=== PATIENT | male | born 1940 | race Caucasian/White ===

== ENCOUNTER → 2016-02-14 | Outpatient (CLI) | payer MEDICARE, OTHER ==
[~2016-02-14] MED LIST: ATOR40TA59 PO; BENZ-13 PO; CALC-694 PO; CALC0.253 PO; CEFD300C PO; CETI-262 PO; CLCX100C PO; FURO40TA4 PO; INSA10V SC; INSU100V32 SC; ND-PRIM50T PO; PROP120C3 PO; SERT100T8 PO; SILD100T PO; WRF2T PO; WRF5T PO; [UNRECOGNIZED DRUG - CODE] IC; [UNRECOGNIZED DRUG - CODE] SC; [UNRECOGNIZED DRUG - CODE] SQ
--- NOTE | 2016-02-14 18:31 | Diagnostic Imaging Report ---
INDICATION: Cough, dyspnea. DISCUSSION: Two views of the chest were obtained, no comparison. The heart and lungs are normal. Mild pulmonary hyperinflation. No acute osseous abnormality. No focal consolidation. IMPRESSION: 1. Mild pulmonary hyperinflation. Dictated by: Dictated on workstation # [id number]
== END ==
LOC: RAD 16:54
PROVIDERS: ATTEND Family Medicine
DX: R05 Cough (principal); R06.02 Shortness of breath
CPT/HCPCS: 71020

== ENCOUNTER → 2016-02-14 | Outpatient (REF) | payer MEDICARE, OTHER ==
[2016-02-14 18:10] LABS: BASOPHILS % (AUTO) 1 % (0-2); EOSINOPHILS # (AUTO) 0.1 10^3uL; EOSINOPHILS % (AUTO) 1 % (0-4); LYMPHOCYTES # (AUTO) 2.2 X10^3; MEAN CORPUSCULAR HEMOGLOBIN 30.2 PG (26.0-34.0); MEAN CORPUSCULAR HGB CONC 32.8 g/dL (31.0-37.0); MEAN CORPUSCULAR VOLUME 92 FL (80-100); MEAN PLATELET VOLUME 11.7 FL (6.0-9.5); MONOCYTES % (AUTO) 8 % (3-11); NEUTROPHILS # (AUTO) 9.1 X10^3; NEUTROPHILS % (AUTO) 72 % (51-67); PLATELET COUNT 247 10^3uL (150-450); WHITE BLOOD COUNT 12.59 10^3uL (4.0-11.0)
[2016-02-14 18:38] LABS: ANION GAP 17.2 MEQ/L (3-15); CALCULATED IONIZED CALCIUM 3.7 mg/dL (3.8-4.6); TOTAL PROTEIN 7.4 g/dL (6.4-8.5)
== END ==
LOC: LAB 16:49
PROVIDERS: ATTEND Family Medicine
DX: R05 Cough (principal); R06.02 Shortness of breath
CPT/HCPCS: 80053; 85025; 86140

== ENCOUNTER 2016-02-15 09:25 | Inpatient (IN) | payer MEDICARE, OTHER ==
[~2016-02-15] VITALS: Ht 177.8 cm; Wt 143.7 kg
[2016-02-15 10:21] VITALS: BP 139/92
[2016-02-15] MEDS ORDERED: CALC0.253 PO (10:31)
[2016-02-15] MEDS ORDERED: ND-PRIM50T PO (10:31)
[2016-02-15] MEDS ORDERED: FURO40TA4 PO (10:31)
[2016-02-15] MEDS ORDERED: INSU100V32 SC (10:31)
[2016-02-15] MEDS ORDERED: CETI-262 PO (10:31)
[2016-02-15] MEDS ORDERED: SERT100T8 PO (10:31)
[2016-02-15] MEDS ORDERED: ATOR40TA59 PO (10:31)
[2016-02-15] MEDS ORDERED: CLCX100C PO (10:31)
[2016-02-15] MEDS ORDERED: CEFD300C PO (10:31)
[2016-02-15] MEDS ORDERED: CALC-694 PO (10:31)
[2016-02-15] MEDS ORDERED: PROP120C3 PO (10:31)
--- NOTE | 2016-02-15 10:46 | History and Physical (E) ---
History & Physical PCP: Thierry Guerra MD CC: Hyperglcemia, weakness HPI: Mr. Betancourt is a 75 year old male admitted from Dr Guerra's office for hyperglcemia and weakness. His blood sugar was noted to be over 500. He complains of myalgias and weakness for the last 3-4weeks. He admits to losing 30 + pounds in the last 4 months but in a weight loss program with [facility] , although he has reported to nursing staff that he has not been following the diet for a while. He denies abdominal pain and reports his stools have been normal. No headaches. He states he has not felt well for about 1 month. He has recently been treated for bronchitis with Zithromax but has not improved. CXR in PCP's office did not reveal pneumonia. He was started on Omnicef, recently, however despite 2 antibiotics he is not improving. Upon arrival to the floor, he looks dry and dehydrated. Flat affect today. He is not in any distress. Discussed care and plans. Questions answered. PMH: IDDM-Type 2 (Insulin) Atrial Fibrillation (Warfarin) Hyperlipidemia (Atorvastatin) VTE's--DVT left leg and PE (Warfarin) Essential Tremor (Propranolol) Morbid Obesity Erectile dysfunction (Sildenafil) Actinic Keratosis Depression (Sertraline) Pancreatitis due to cholecystitis PSH: Tonsillectomy Variceal Cholecystectomy Colonoscopy- normal per pt ALLERGIES: NONE HOME MEDICATIONS: Alprostadil 20 MCG IC UD Atorvastatin 40 MG PO DAILY Calcitriol 0.25 MCG PO BID Calcium Carbonate/Vitamin D3 1 TAB PO BID Cefdinir 300 MG PO BID Celecoxib 100 MG PO BID Cetirizine 10 MG PO DAILY Furosemide 40 MG PO BID Hum Insulin NPH/Reg Insulin 70/30 Mix 60 UNIT SC WITH BREAKFAST Hum Insulin NPH/Reg Insulin 70/30 Mix 60 UNIT SQ WITH LUNCH Hum Insulin NPH/Reg Insulin 70/30 Mix 30 UNIT SQ WITH DINNER Insulin Glargine 20 UNIT SC HS Primidone 50 MG PO BID Propranolol 120 MG PO DAILY Sertraline 100 MG PO DAILY Sildenafil 100 MG PO UD Warfarin 2mg and 5 mg alternatively PO DAILY@1700 Please see list at end of report. FH: Parents--Mother in a car wreck age 55. Father age 75 kidney, cardiac and lung issues Siblings--Brother had TB x 2 and on oxygen. SH: to second - he has one daughter who lives in [place], and she has 8 kids. He does not smoke or use alcohol, retired from [employer], lives in [place], still drives ROS: CONSTITUTION: Endorses weight loss. No weight gain. Denies fever or chills. HEENT: No change in vision or hearing. No sores in mouth, sore throat. CV: No chest pain, palpitations. PULM: No cough, shortness of breath, difficulty breathing. GI: No upset stomach, nausea, vomiting, constipation, or diarrhea. No blood in stool. : No dysuria. No blood in urine. MS: Endorses achiness all over . NEURO: No numbness or tingling. No weakness. INTEG: No rashes, lesions, or sores. ENDO: No heat or cold intolerance. No polydipsia or polyuria. HEME/LYMPH: No easy bruising or bleeding. No swollen glands. PSYCH: No change in mood or behavior. OBJECTIVE: Vitals: Vital Signs Date Time Temp Pulse Resp B/P Pulse Ox O2 Delivery O2 Flow Rate FiO2 02/15/16 10:21 97.2 108 20 91 Room air GEN: Awake and alert, no distress, speech clear. HEENT: EOMI, PERRL, moist oral mucosa. CV: Irregular rhythm. Regular rate. LUNGS: CTA B. NLR's. ABD: Obese. Normal bowel sounds. S/NTTP/ND. EXTR: No C/C/E. Normal peripheral pulses. Labs: Glucose 505 today CBC BMP Last 24 Hrs 02/15/16 11:05 Laboratory Results Past 24 Hrs 02/15/16 11:05: Alanine Aminotransferase (ALT/SGPT) 76, Albumin 4.3, Albumin/Globulin Ratio 1.162, Alkaline Phosphatase 85, Anion Gap 17.2, Aspartate Amino Transf (AST/SGOT ) 51, BUN/Creatinine Ratio 14, Basophils # (Auto) 0.1, Basophils (%) (Auto) 1, Blood Urea Nitrogen 38, C-Reactive Protein 1.40, Calcium Level 8.9, Calcium/ Ionized Calcium Ratio 3.6, Calculated Osmolality 292, Carbon Dioxide Level 23, Chloride Level 98, Creatine Kinase MB 1.2, Creatinine 2.79, Eosinophils # (Auto ) 0.2, Eosinophils (%) (Auto) 2, Estimat Glomerular Filtration Rate 27.1, Estimated GFR (Non- 22.4, Glucose Level 548, Hematocrit 37.50, Hemoglobin 12.8, Hemoglobin A1c 11.5, Lymphocytes # (Auto) 1.9, Lymphocytes (%) (Auto) 16, Mean Corpuscular Hemoglobin 30.8, Mean Corpuscular Hemoglobin Concent 34.1, Mean Corpuscular Volume 90, Mean Platelet Volume 11.0, Monocytes # (Auto) 1.1, Monocytes (%) (Auto) 9, NE-Bgd-V-Type Natriuretic Peptide 2550, Neutrophils # (Auto) 8.7, Neutrophils (%) (Auto) 72, Platelet Count 237, Potassium Level 4.9, Prothromb Time International Ratio 2.2, Prothrombin Time 24.2, Red Blood Count 4.15, Red Cell Distribution Width 13.2, Sodium Level 133, Thyroid Stimulating Hormone (TSH) 1.69, Total Bilirubin 1.1, Total Protein 8.0, Troponin I < 0.012, White Blood Count 12.13 02/15/16 11:09: Adenovirus (PCR) [Pending], Bordetella parapertussis DNA (PCR) [Pending], Chlamydophila pneumoniae (PCR) [Pending], Coronavirus Type 229E (PCR) [Pending] , Coronavirus Type HKU1 (PCR) [Pending], Coronavirus Type NL63 (PCR) [Pending], Coronavirus Type OC43 (PCR) [Pending], Enterovirus/Rhinovirus (PCR) [Pending], Human Metapneumovirus (PCR) [Pending], Influenza Type A (H1) (PCR) [Pending], Influenza Virus Type B (PCR) [Pending], Mycoplasma pneumoniae (PCR) [Pending], Parainfluenza Type 1 (PCR) [Pending], Parainfluenza Type 2 (PCR) [Pending], Parainfluenza Type 3 (PCR) [Pending], Parainfluenza Type 4 (PCR) [Pending], Respiratory Syncytial Virus (PCR) [Pending] IMAGING: CXR IMPRESSION: 1. Mild pulmonary hyperinflation. ASSESSMENT/PLAN: Hyperglycemia Will treat with insulin here. Patient is on mealtime insulin and hs lantus. Continue accu cheks. Malaise/sore throat Patient testing positive for parainfluenza 3. Treating symptomatically. Atrial Fibrillation Continue home warfarin regimen. INR is currently therapeutic. Hyperlipidemia Continue home atorvastatin. VTE's History of DVT left leg and PE. Continue therapeutic coumadin. Essential Tremor Continue home propranolol. Erectile dysfunction Continuing home sildenafil. Depression Continue home sertraline. FEN NS at 100/hr. Electrolyte--mild hyponatremia. Will monitor. Diabetic diet as tolerated. Code status Full code. DVT proph Therapeutic warfarin. Dispo Inpatient or now. Monitor closely. Allergies/Home Medications Allergies: Coded Allergies: No Known Drug Allergies (Unverified , 04/21/12) Reported Home Medications Scheduled Alprostadil (Caverject) 20 MCG IC UD (Reported) Atorvastatin Calcium (Atorvastatin Calcium) 40 MG PO DAILY (Reported) Calcitriol (Calcitriol) 0.25 MCG PO BID (Reported) Calcium Carbonate/Vitamin D3 (Calcium 600 + Vit D Caplet) 1 TAB PO BID (Reported ) Cefdinir (Cefdinir) 300 MG PO BID (Reported) Celecoxib (Celebrex) 100 MG PO BID (Reported) Cetirizine HCl (Cetirizine HCl) 10 MG PO DAILY (Reported) Furosemide (Furosemide) 40 MG PO BID (Reported) Hum Insulin NPH/Reg Insulin Hm (Novolin 70/30 Mix) 60 UNIT SC WITH BREAKFAST ( Reported) Hum Insulin NPH/Reg Insulin Hm (Novolin 70/30 Mix) 60 UNIT SQ WITH LUNCH ( Reported) Hum Insulin NPH/Reg Insulin Hm (Novolin 70/30 Mix) 30 UNIT SQ WITH DINNER ( Reported) Insulin Glargine,Hum.rec.anlog (Lantus) 20 UNIT SC HS (Reported) Primidone (Mysoline) 50 MG PO BID (Reported) Propranolol HCl (Propranolol HCl) 120 MG PO DAILY (Reported) Sertraline HCl (Sertraline HCl) 100 MG PO DAILY (Reported) Sildenafil Citrate (Viagra) 100 MG PO UD (Reported) Warfarin (Warfarin) 5 MG PO DAILY@1700 (Reported) Warfarin (Warfarin) 2 MG PO DAILY@1700 (Reported) Discontinued Medications Insuln Asp Prt/Insulin Aspart (Novolog 70/30 Mix) 60 UNITS SC WITH LUNCH ( Reported) Discontinued Reason: Entered in error Copies to: End of Report . Azucena Lacey APRN Feb 15, 2016 10:46 HARLEY JUSTICE MD Feb 15, 2016 23:21
[2016-02-15] MEDS ORDERED: ACETAMINOPHEN 325 MG TAB (TYLENOL) PO PRN (10:50)
[2016-02-15] MEDS ORDERED: ONDANSETRON 2 MG/ML (Z0FRAN) 2 ML VIAL IV PRN (10:50)
[2016-02-15] MEDS ORDERED: INSULIN REGULAR 1 UNIT/0.01 ML DOSE IV ONE (10:50)
[2016-02-15] MEDS ORDERED: WRF5T PO (11:00)
[2016-02-15] MEDS ORDERED: NS FLUSH 3 ML PRN IV (11:00)
[2016-02-15] MEDS ORDERED: NS FLUSH 10 ML PRN IV (11:00)
[2016-02-15] MEDS ORDERED: WRF2T PO (11:00)
[2016-02-15 11:22] LABS: BASOPHILS % (AUTO) 1 % (0-2); EOSINOPHILS # (AUTO) 0.2 10^3uL; EOSINOPHILS % (AUTO) 2 % (0-4); LYMPHOCYTES # (AUTO) 1.9 X10^3; MEAN CORPUSCULAR HEMOGLOBIN 30.8 PG (26.0-34.0); MEAN CORPUSCULAR HGB CONC 34.1 g/dL (31.0-37.0); MEAN CORPUSCULAR VOLUME 90 FL (80-100); MONOCYTES # (AUTO) 1.1 X10^3; MONOCYTES % (AUTO) 9 % (3-11); NEUTROPHILS # (AUTO) 8.7 X10^3; NEUTROPHILS % (AUTO) 72 % (51-67); PLATELET COUNT 237 10^3uL (150-450); WHITE BLOOD COUNT 12.13 10^3uL (4.0-11.0)
[2016-02-15] MEDS ORDERED: INSA10V SC (11:33)
[2016-02-15] MEDS ORDERED: [UNRECOGNIZED DRUG - CODE] SC (11:33)
[2016-02-15] MEDS ORDERED: SILD100T PO (11:33)
[2016-02-15] MEDS ORDERED: [UNRECOGNIZED DRUG - CODE] IC (11:33)
[2016-02-15 11:35] LABS: ALBUMIN 4.3 g/dL (3.4-5.0); ALKALINE PHOSPHATASE 85 U/L (38-126); ANION GAP 17.2 MEQ/L (3-15); BUN/CREATININE RATIO 14 (10-20); CALCULATED IONIZED CALCIUM 3.6 mg/dL (3.8-4.6)
[2016-02-15] MEDS ORDERED: [UNRECOGNIZED DRUG - CODE] SQ ×2 (11:36)
[2016-02-15 11:45] VITALS: BP 134/67
[2016-02-15] MEDS ORDERED: INSULIN LISPRO 1 UNIT/0.01 ML (HUMALOG) DOSE SC ONE ×2 (12:20→14:05)
[2016-02-15] MEDS ORDERED: PROMETHAZINE/CODEINE SYRUP 6.25MG-10MG/5ML (PHENERGAN W/COD) UDC PO PRN (13:50)
--- NOTE | 2016-02-15 14:07 | NUR ---
MED REC COMPLETE--current med list obtained from patient report (written list), external med history application, listing from patient's PCP (Dr. Guerra), and retail pharmacy ([facility]).
[2016-02-15] MEDS: BENZONATATE 100 MG (TESSALON) CAPSULE PO PRN ×2 (14:22→20:40)
[2016-02-15 15:50] VITALS: BP 111/79
[2016-02-15 16:03] LABS: BILIRUBIN,URINE Negative (Negative); CLARITY,URINE Clear; COLOR,URINE Yellow; GLUCOSE, URINE (UA) 2+ (Negative); LEUKOCYTE ESTERASE ,URINE Negative (Negative); PH,URINE 5.5 (5.0 - 8.0); UROBILINOGEN,URINE 0.2 mg/dL (0.2-1.0)
[2016-02-15 16:06] LABS: URINE CENTRIFUGED VOLUME 12 mL
[2016-02-15 16:09] LABS: RBC,URINE 0-2 /HPF
[2016-02-15] MEDS ORDERED: DEXTROSE 50% 25 GM/50 ML SYRINGE ONE (17:13)
[2016-02-15] MEDS: DEXTROSE 50% 25 GM/50 ML SYRINGE IV PRN ×2 (17:15→18:19)
[2016-02-15] MEDS ORDERED: DEXTROSE ORAL GEL (GLUTOSE 40%) 15 GM TUBE PO PRN (17:25)
[2016-02-15] MEDS ORDERED: GLUCAGON EMERGENCY 1 MG/KIT IM PRN (17:25)
[2016-02-15] MEDS: INSULIN LISPRO 1 UNIT/0.01 ML (HUMALOG) DOSE SC SCH ×2 (17:30→21:00)
[2016-02-15 19:54] VITALS: BP 110/72
--- NOTE | 2016-02-15 19:56 | NUR ---
Pt reports to floor at 0947 ambulatory from home. Pt saw Dr. uGerra yesterday and was told to come be admitted today. Pt's blood sugar was [address] Guerra's office. Pt's blood sugar at 1015 was 505. 15 units IV Regular insulin given per order. Blood sugar at 1210 was 387. 75 units Humalog SQ given. 1400 blood sugar was 307. 10units Humalog SQ given, Blood sugar at 1500 was 115. Blood sugars to be AC/HS. Blood sugar at 1712 was 37. Pt barely responsive and very diaphoretic. 1/2 amp D50 given per protocol. Blood sugar 5mins later was 126. Blood sugar at 1800 was 53. 1/2 amp D50 given. 5 mins later, blood sugar 123. 1845-blood sugar 99. Pt eating supper tray at this time. IVF infusing without complications. Pt was given Tessalon pearls x1 at 1422 for cough. Tylenol given x1 at noon for generalized pain. Report given to Anastasia Clayton RN at 1845.
--- NOTE | 2016-02-15 20:40 | NUR ---
PRN Tessalon Perles given at this time per pt request. Denies other needs.
[2016-02-15 23:49] VITALS: BP_SYST 151; BP_SYST 152; BP_SYST 153; BP_DIAS 117; BP_DIAS 95
[2016-02-16 04:21] VITALS: BP 123/88
--- NOTE | 2016-02-16 06:19 | NUR ---
Pt rested well this shift. Skin warm, dry, intact. Resprs nonlabored, even on RA. Call light within reach. Pt's HR got up to 130s-140s per secured entrance monitor when pt got up to RR early this morning. Pt denied feelings of heart racing or palpitations. Pleasant and interactive. NS @ 100mL/hr infusing with no difficulty. Denies needs.
[2016-02-16 06:40] LABS: ALBUMIN 3.7 g/dL (3.4-5.0); ANION GAP 16.5 MEQ/L (3-15); MAGNESIUM* 1.9 mg/dL (1.6-2.3); PHOSPHORUS 3.3 mg/dL (2.4-4.9)
[2016-02-16 06:47] LABS: BASOPHILS % (AUTO) 0 % (0-2); EOSINOPHILS # (AUTO) 0.2 10^3uL; EOSINOPHILS % (AUTO) 1 % (0-4); LYMPHOCYTES # (AUTO) 2.2 X10^3; MEAN CORPUSCULAR HEMOGLOBIN 30.5 PG (26.0-34.0); MEAN CORPUSCULAR HGB CONC 33.4 g/dL (31.0-37.0); MEAN CORPUSCULAR VOLUME 91 FL (80-100); MEAN PLATELET VOLUME 11.4 FL (6.0-9.5); MONOCYTES # (AUTO) 1.3 X10^3; MONOCYTES % (AUTO) 10 % (3-11); NEUTROPHILS # (AUTO) 8.7 X10^3; NEUTROPHILS % (AUTO) 70 % (51-67); PLATELET COUNT 214 10^3uL (150-450); WHITE BLOOD COUNT 12.48 10^3uL (4.0-11.0)
[2016-02-16] MEDS: INSULIN LISPRO 1 UNIT/0.01 ML (HUMALOG) DOSE SC SCH ×2 (08:29→12:32)
[2016-02-16] MEDS: BENZONATATE 100 MG (TESSALON) CAPSULE PO PRN ×2 (08:29→12:47)
[2016-02-16 08:37] VITALS: BP 130/74
[2016-02-16] MEDS ORDERED: NS FLUSH 3 ML DAILY IV SCH (09:00)
--- NOTE | 2016-02-16 09:19 | Progress Note-A/P (E) ---
Progress Note Subjective: Patient reports he is feeling better. He would like to go home for better rest. Discussed current care plans and discharge planning with patient and . Objective: Current Medications Acetaminophen 650 mg Q6H PRN PO Ondansetron 4 mg Q6H PRN IV Benzonatate 100 mg Q4H PRN PO Promethazine/Codeine 5 ml HS PRN PO Insulin Human Lispro SUPPLEMENTAL SCALE QIDACHS SC Vital Signs Date Time Temp Pulse Resp B/P Pulse Ox O2 Delivery O2 Flow Rate FiO2 02/16/16 08:53 111 02/16/16 08:37 98.0 22 130/74 93 Room air I & O Past 24 hrs 02/16/16 07:00 Intake Total 1100 ml Output Total 1000 ml Balance 100 ml Intake Oral 1100 ml Output Urine Total 1000 ml # Bowel Movements 1 GEN: Awake and alert, no distress, speech clear. HEENT: EOMI, PERRL, moist oral mucosa. CV: Irregular rhythm. Regular rate. LUNGS: CTA B. NLR's. ABD: Obese. Normal bowel sounds. S/NTTP/ND. EXTR: No edema noted in lower extremities. Past 24 hour Lab Results 02/15/16 11:05 02/16/16 05:20 Laboratory Results Past 24 Hrs 02/15/16 11:05: Alanine Aminotransferase (ALT/SGPT) 76, Albumin 4.3, Albumin/Globulin Ratio 1.162, Alkaline Phosphatase 85, Anion Gap 17.2, Aspartate Amino Transf (AST/SGOT ) 51, BUN/Creatinine Ratio 14, Basophils # (Auto) 0.1, Basophils (%) (Auto) 1, Blood Urea Nitrogen 38, C-Reactive Protein 1.40, Calcium Level 8.9, Calcium/ Ionized Calcium Ratio 3.6, Calculated Osmolality 292, Carbon Dioxide Level 23, Chloride Level 98, Creatine Kinase MB 1.2, Creatinine 2.79, Eosinophils # (Auto ) 0.2, Eosinophils (%) (Auto) 2, Estimat Glomerular Filtration Rate 27.1, Estimated GFR (Non- 22.4, Glucose Level 548, Hematocrit 37.50, Hemoglobin 12.8, Hemoglobin A1c 11.5, Lymphocytes # (Auto) 1.9, Lymphocytes (%) (Auto) 16, Mean Corpuscular Hemoglobin 30.8, Mean Corpuscular Hemoglobin Concent 34.1, Mean Corpuscular Volume 90, Mean Platelet Volume 11.0, Monocytes # (Auto) 1.1, Monocytes (%) (Auto) 9, QC-Ppd-H-Type Natriuretic Peptide 2550, Neutrophils # (Auto) 8.7, Neutrophils (%) (Auto) 72, Platelet Count 237, Potassium Level 4.9, Prothromb Time International Ratio 2.2, Prothrombin Time 24.2, Red Blood Count 4.15, Red Cell Distribution Width 13.2, Sodium Level 133, Thyroid Stimulating Hormone (TSH) 1.69, Total Bilirubin 1.1, Total Protein 8.0, Troponin I < 0.012, White Blood Count 12.13 02/15/16 11:09: Adenovirus (PCR) Negative, Bordetella parapertussis DNA (PCR) Negative, Chlamydophila pneumoniae (PCR) Negative, Coronavirus Type 229E (PCR) Negative, Coronavirus Type HKU1 (PCR) Negative, Coronavirus Type NL63 (PCR) Negative, Coronavirus Type OC43 (PCR) Negative, Enterovirus/Rhinovirus (PCR) Negative, Human Metapneumovirus (PCR) Negative, Influenza Type A (H1) (PCR) Negative, Influenza Virus Type B (PCR) Negative, Mycoplasma pneumoniae (PCR) Negative, Parainfluenza Type 1 (PCR) Negative, Parainfluenza Type 2 (PCR) Negative, Parainfluenza Type 3 (PCR) Positive, Parainfluenza Type 4 (PCR) Negative, Respiratory Syncytial Virus (PCR) Negative 02/15/16 15:40: Urine Bacteria None seen, Urine Bilirubin Negative, Urine Clarity Clear, Urine Collection Type Clean catch, Urine Color Yellow, Urine Glucose (UA) 2+, Urine Ketones Negative, Urine Leukocyte Esterase Negative, Urine Nitrite Negative, Urine Protein 2+, Urine RBC 0-2, Urine RBC (Auto) 1+, Urine Specific [place] >= 1.030, Urine Squamous Epithelial Cells 0-2, Urine Urobilinogen 0.2, Urine WBC None seen, Urine pH 5.5, Volume Urine Centrifuged 12 ml 02/16/16 05:20: Albumin 3.7, Anion Gap 16.5, Basophils # (Auto) 0.1, Basophils (%) (Auto) 0, Blood Urea Nitrogen 37, Calcium Level 8.2, Carbon Dioxide Level 23, Chloride Level 102, Creatinine 2.61, Eosinophils # (Auto) 0.2, Eosinophils (%) (Auto) 1, Estimat Glomerular Filtration Rate 29.3, Estimated GFR (Non- 24.2, Glucose Level 272, Hematocrit 35.90, Hemoglobin 12.0, Lymphocytes # (Auto ) 2.2, Lymphocytes (%) (Auto) 17, Mean Corpuscular Hemoglobin 30.5, Mean Corpuscular Hemoglobin Concent 33.4, Mean Corpuscular Volume 91, Mean Platelet Volume 11.4, Monocytes # (Auto) 1.3, Monocytes (%) (Auto) 10, Neutrophils # ( Auto) 8.7, Neutrophils (%) (Auto) 70, Platelet Count 214, Potassium Level 4.7, Prothromb Time International Ratio 1.9, Prothrombin Time 21.4, Red Blood Count 3.93, Red Cell Distribution Width 13.2, Sodium Level 137, White Blood Count 12.48, Magnesium Level 1.9, Phosphorus Level 3.3 Imaging Results CXR IMPRESSION: 1. Mild pulmonary hyperinflation. Assessment/Plan Hyperglycemia with IDDM Treated with insulin here. Patient is on mealtime insulin and hs lantus. Recommend changing insulin regimen to 1/2 daily insulin with meals and 1/2 daily insulin provided as long acting insulin. Recommended Humalog 30units with breakfast and lunch and 20 units with meals and BID lantus dosing at 42 units. Offered to patient, however he declined and asked to discuss with PCP. Monitored accu cheks, A1c is 11.5. Parainfluenza 3 infection Malaise and sore throat. Patient testing positive for parainfluenza 3. Treating symptomatically. Atrial Fibrillation Continue home warfarin regimen. INR was therapeutic here. Hyperlipidemia Continue home atorvastatin. VTE's History of DVT left leg and PE. Continued therapeutic coumadin. Essential Tremor Continued home propranolol. Erectile dysfunction Continued home regimen. Depression Continued home sertraline. FEN NS at 100/hr. Electrolyte--mild hyponatremia, improved with IVF's. Diabetic diet as tolerated. Code status Full code. DVT proph Warfarin. Dispo Inpatient. He would like to go home as he is feeling better. Will discharge to home with follow up for BG management per PCP. HARLEY JUSTICE MD Feb 16, 2016 09:19 Inpatient or now. Monitor closely. HARLEY JUSTICE MD Feb 16, 2016 09:19
--- NOTE | 2016-02-16 12:20 | NUR ---
Med Rec completed by Pharm Student via conversation with patient, med list and ext med hx.
--- NOTE | 2016-02-16 12:34 | NUR ---
Blood sugar at 1200= 522. Dr. Youssef notified. 15 units of Humalog administered into left lower abdomen.
[2016-02-16] MEDS ORDERED: BENZ-13 PO (14:04)
--- NOTE | 2016-02-16 14:07 | Discharge Summary (E) ---
Discharge Summary (A) Admit Date/Time Feb 15, 2016 at 10:52 Discharge Date/Time Feb 16, 2016 Admitting Provider Coretta Youssef MD Primary Care Provider Thierry Guerra MD Attending Provider Coretta Youssef MD Consulting Provider Admission Diagnosis Hyperglycemia Malaise/sore throat Atrial Fibrillation History and Present Illness Mr. Betancourt is a 75 year old male admitted from Dr Guerra's office for hyperglcemia and weakness. His blood sugar was noted to be over 500. He complains of myalgias and weakness for the last 3-4weeks. He admits to losing 30 + pounds in the last 4 months but in a weight loss program with [facility] , although he has reported to nursing staff that he has not been following the diet for a while. He denies abdominal pain and reports his stools have been normal. No headaches. He states he has not felt well for about 1 month. He has recently been treated for bronchitis with Zithromax but has not improved. CXR in PCP's office did not reveal pneumonia. He was started on Omnicef, recently, however despite 2 antibiotics he is not improving. Upon arrival to the floor, he looks dry and dehydrated. Flat affect today. He is not in any distress. Discussed care and plans. Questions answered. Hospital Course and Treatment Hyperglycemia with IDDM Treated with insulin here. Patient is on mealtime insulin and hs lantus. Recommend changing insulin regimen to 1/2 daily insulin with meals and 1/2 daily insulin provided as long acting insulin. Recommended Humalog 30units with breakfast and lunch and 20 units with meals and BID lantus dosing at 42 units. Offered to patient, however he declined and asked to discuss with PCP. Monitored accu cheks, A1c is 11.5. Parainfluenza 3 infection Malaise and sore throat. Patient testing positive for parainfluenza 3. Treating symptomatically. Atrial Fibrillation Continue home warfarin regimen. INR was therapeutic here. Hyperlipidemia Continue home atorvastatin. VTE's History of DVT left leg and PE. Continued therapeutic coumadin. Essential Tremor Continued home propranolol. Erectile dysfunction Continued home regimen. Depression Continued home sertraline. FEN NS at 100/hr. Electrolyte--mild hyponatremia, improved with IVF's. Diabetic diet as tolerated. Code status Full code. DVT proph Warfarin. Dispo Inpatient. He would like to go home as he is feeling better. Will discharge to home with follow up for BG management per PCP. Discharge Physicial Exam GEN: Awake and alert, no distress, speech clear. HEENT: EOMI, PERRL, moist oral mucosa. CV: Irregular rhythm. Regular rate. LUNGS: CTA B. NLR's. ABD: Obese. Normal bowel sounds. S/NTTP/ND. EXTR: No edema noted in lower extremities. Radiology/Laboratory Data CXR IMPRESSION: 1. Mild pulmonary hyperinflation. Discharge Provider's Instructions You were admitted for not feeling well. This was initially thought to be due to your blood sugars, however you were found to have a virus called Parainfluenza 3. This is likely why you were feeling poorly. Your sugars have improved and you are feeling better. You are being discharged home with your home medication regimen. You will have a follow up with Dr. Guerra on February 19, 11:30am, you can discuss your insulin medication regimen at that time. Discharge Diet: Carbohydrate controlled Discharge Medications New Medications: Benzonatate (Tessalon Perle) 100 Mg Capsule 100 MG PO Q4H PRN COUGH #20 Ref 0 CAP Continued Medications: Alprostadil (Caverject) 20 Mcg Kit 20 MCG IC UD #18 Atorvastatin Calcium (Atorvastatin Calcium) 40 Mg Tablet 40 MG PO DAILY #90 Calcitriol (Calcitriol) 0.25 Mcg Capsule 0.25 MCG PO BID #180 Calcium Carbonate/Vitamin D3 (Calcium 600 + Vit D Caplet) 1 Each Tablet 1 TAB PO BID TAB Celecoxib (Celebrex) 100 Mg Cap 100 MG PO BID #180 Cetirizine HCl (Cetirizine HCl) 10 Mg Tablet 10 MG PO DAILY #90 Furosemide (Furosemide) 40 Mg Tablet 40 MG PO BID #180 Hum Insulin NPH/Reg Insulin Hm (Novolin 70/30 Mix) 10 Unit/0.1 Ml Soln 60 UNIT SC WITH BREAKFAST #140 Hum Insulin NPH/Reg Insulin Hm (Novolin 70/30 Mix) 10 Unit/0.1 Ml Soln 60 UNIT SQ WITH LUNCH VIAL Hum Insulin NPH/Reg Insulin Hm (Novolin 70/30 Mix) 10 Unit/0.1 Ml Soln 30 UNIT SQ WITH DINNER VIAL Insulin Glargine,Hum.rec.anlog (Lantus) 100 Unit/1 Ml Vial 20 UNIT SC HS #50 Primidone (Mysoline) 50 Mg Tab 50 MG PO BID #180 Propranolol HCl (Propranolol HCl) 120 Mg Cap.sa.24h 120 MG PO DAILY #90 Sertraline HCl (Sertraline HCl) 100 Mg Tablet 100 MG PO DAILY #90 Sildenafil Citrate (Viagra) 100 Mg Tablet 100 MG PO UD #18 Warfarin (Warfarin) 5 Mg Tablet 5 MG PO DAILY@1700 TAB Warfarin (Warfarin) 2 Mg Tablet 2 MG PO DAILY@1700 TAB Discontinued Medications: Cefdinir (Cefdinir) 300 Mg Capsule 300 MG PO BID #20 Follow up Follow up Referrals: [facility] - 02/20/16 @ [facility] with Thierry Guerra Md Discharge Diagnosis Hyperglycemia with IDDM Parainfluenza 3 infection Copies to: End of Report . CORETTA YOUSSEF MD Feb 16, 2016 14:07
--- NOTE | 2016-02-16 14:39 | NUR ---
Discharge order received. IV discontinued with catheter intact. Telemetry discontinued. Instructions provided to patient with verbal and written understanding expressed.
--- NOTE | 2016-02-16 14:53 | NUR ---
Patient dismissed via wheelchair to private car accompanied by ENVIRONMENTAL DEPARTMENT MANAGER and . No further needs.
== END 2016-02-16 15:00 | disposition home or self-care (01) | DRG 638 ==
LOC: MED/SURG 09:41 → OBSVTOIN 10:52
PROVIDERS: ADMIT Family Medicine; ATTEND Family Medicine
DX: E11.65 Type 2 diabetes mellitus with hyperglycemia (principal); E87.1 Hypo-osmolality and hyponatremia; Z68.42 Body mass index [BMI] 45.0-49.9, adult; J40 Bronchitis, not specified as acute or chronic; E86.0 Dehydration; I48.91 Unspecified atrial fibrillation; J02.8 Acute pharyngitis due to other specified organisms; G25.0 Essential tremor; E66.01 Morbid (severe) obesity due to excess calories; F32.9 Major depressive disorder, single episode, unspecified; Z79.4 Long term (current) use of insulin; Z79.01 Long term (current) use of anticoagulants; Z86.718 Personal history of other venous thrombosis and embolism; Z86.711 Personal history of pulmonary embolism
CPT/HCPCS: 36415; 80053; 80069; 81003; 81015; 82553; 83036; 83735; 83880; 84443; 84484; 85025; 85610; 86140; 87486; 87581; 87633; 87798; 93306

== ENCOUNTER → 2016-06-19 | Outpatient (CLI) | payer MEDICARE, OTHER ==
--- NOTE | 2016-06-19 16:57 | Diagnostic Imaging Report ---
INDICATION: Acute right shoulder pain. FINDINGS: Three views of the right shoulder demonstrate no fracture or dislocation. Minimal osteophytes are seen off the glenoid. IMPRESSION: There are mild degenerative changes of the right shoulder. Dictated by: Dictated on workstation # [id number]
== END ==
LOC: LAB 16:08
PROVIDERS: ATTEND Family Medicine
DX: M25.511 Pain in right shoulder (principal)
CPT/HCPCS: 73030

== ENCOUNTER → 2016-06-19 | Outpatient (REF) | payer MEDICARE, OTHER | LOC: LAB 15:50 | PROVIDERS: ATTEND Family Medicine | DX: Z53.9 Procedure and treatment not carried out, unspecified reason (principal) ==

== ENCOUNTER → 2016-06-20 | Outpatient (CLI) | payer MEDICARE, OTHER | LOC: LAB 09:33 | PROVIDERS: ATTEND Family Medicine | DX: E13.9 Other specified diabetes mellitus without complications (principal); I48.2 Chronic atrial fibrillation; I26.99 Other pulmonary embolism without acute cor pulmonale; Z13.6 Encounter for screening for cardiovascular disorders | CPT/HCPCS: 36415; 80061; 83036; 85610 ==